=== PATIENT | male | born 1990 | race Caucasian/White ===

== ENCOUNTER 2016-11-18 17:19 | Emergency (ER) | payer OTHER ==
[2016-11-18 17:25] VITALS: TEMP 98.8; BMI 30.4
--- NOTE | 2016-11-18 18:57 | EDPRACDOC ---
- General Information Chief Complaint: Neck Injury Stated Complaint: NECK PAIN Time Seen by Provider: 11/18/16 18:53 Information Source: Patient Mode Of Arrival: Car Home Medications: Home Medications Levothyroxine Sodium [Synthroid] 25 mcg PO DAILY 04/30/13 Cyclobenzaprine HCl [Flexeril] 10 mg PO TID PRN #20 tablet 11/18/16 Ketoprofen 50 mg PO BID PRN #20 capsule 11/18/16 Allergies/Adverse Reactions: Allergies Allergy/AdvReac Type Severity Reaction Status Date / Time Sulfa (Sulfonamide Allergy Severe Hives* Verified 11/18/16 17:25 Antibiotics) - History of Present Illness Onset: TODAY HPI: PT STATES THAT HE WAS WAKING UP THIS MORNING WHEN HE "STRETCHED MY HEAD BACK INTO MY PILLOW", PT STATES FELT A "POP" IN LEFT SIDE OF NECK, STATES UNABLE TO MOVE NECK SINCE. PAIN RADIATES UP BACK OF HEAD, NO NUMBNESS OR TINGLING OF EXTREMITIES, USING ADVIL AT HOME WITHOUT RELIEF. Pain Severity: Severe Mechanism: Extension Circumstances: Reports: Other Associated signs and symptoms: Reports: None ED Past Medical History - History Reviewed Yes Nurses notes reviewed and agree except as marked No Past Medical History: Yes Patient has no past medical history - Social Medical History Smoking Status: Never smoker EDM Review of Systems - Review of Systems Constitutional: negative: Chills, Fever Neurological: negative: Dizziness, Numbness, Weakness Musculoskeletal: Neck Integumentary: No Symptoms Reported - Physical Exam Constitutional: Alert (Awake), No apparent distress Oriented to: Time, Person, Place Last recorded Vital Signs: Last Vital Signs Temp 98.8 F 11/18/16 17:23 Pulse 83 11/18/16 17:23 Resp 18 11/18/16 17:23 BP 155/81 11/18/16 17:23 Pulse Ox 98 11/18/16 17:23 Oxygen Pulse Oxygen Saturation 98 O2 Device Room Air Oxygen Flow Rate Fraction of Inspired Oxygen ( FIO2) - HEENT Head: Normal ( normocephalic) Eye Exam: Normal (PERRL, EOMI, Sclera white) Neck: Limited ROM, Paraspinal Tenderness, Tender. negative: Step off - Integumentary Skin: Normal, Warm, Dry Lymphatics: Normal (no adenopathy) - Neurologic Memory Impaired: Normal Motor Function: Normal (Normal tone, Pulses 2+ No cyanosis or edema, FROM) Cranial Nerve: Normal (CN II-X11 intact sensation, strength 5/5) Cerebellar: Normal Mood Description: Normal Perception: Normal - Differential Diagnosis Cervical Muscle Spasm, Cervical Sprain/Strain Decision Time to Discharge: 18:58 - Departure Disposition: Home Condition: Stable Final Diagnosis: Cervical paraspinal muscle spasm Instructions: Neck Strain Exercises (GEN) Education/Counseling Given To: Patient Education/Counseling Given Regarding: Diagnosis, Treatment, Prognosis, Follow Up Referrals: James Vasquez MD [Staff Physician] - One Week Prescriptions: Cyclobenzaprine HCl [Flexeril] 10 mg PO TID PRN #20 tablet PRN Reason: Muscle Spasms Ketoprofen 50 mg PO BID PRN #20 capsule PRN Reason: Pain Additional Instructions: APPLY WARM COMPRESSES TO YOUR NECK 20 MINS AT A TIME 4 - 5 TIMES DAILY NEEDED FOR PAIN.
[2016-11-18] MEDS ORDERED: CYCLOBENZAPRINE 10 MG TAB PO ONE (18:59)
[2016-11-18] MEDS ORDERED: KETOROLAC TROMETHAMINE 10 MG TAB PO ONE (18:59)
[2016-11-18 19:12] VITALS: BP 132/79; PULSE 67
== END 2016-11-18 19:08 | disposition home or self-care (01) ==
LOC: EDMC 17:19
DX: M62.838 Other muscle spasm (principal); M54.2 Cervicalgia
CPT/HCPCS: 99283; J3490